=== PATIENT | female | born 1940 | race Caucasian/White ===

== ENCOUNTER 2016-03-22 07:39 | Day surgery (SDC) | payer MEDICARE ==
[~2016-03-22] VITALS: Ht 162.6 cm; Wt 57.0 kg
[~2016-03-22 07:39] MED LIST: ACET500T3 PO; BENA25TA3 PO; CYCL1TAB29 PO; DEXA4TAB PO; LORA-373 PO; NAPR500 PO; PERC5TAB12 PO; PRIL20CA9 PO; REGL10TA5 PO; ZOFR8TAB PO
[2016-03-22 07:55] VITALS: BP 141/83; PULSE 105; RESP 20; TEMP 97.6; O2SAT 97
[2016-03-22] MEDS ORDERED: LEVOFLOXACIN 500 MG PREMIX 100 ML - nephrostomy tube insertion or exchange IV SCH (08:00)
[2016-03-22] MEDS ORDERED: SODIUM CHLORIDE 0.9% 1000 ML IV SCH (08:00)
[2016-03-22] MEDS ORDERED: ONDANSETRON HCL 4 MG/2 ML VIAL ONE (08:36)
[2016-03-22] MEDS ORDERED: ONDANSETRON HCL 4 MG/2 ML VIAL IVS ONE (09:00)
[2016-03-22] MEDS ORDERED: Infusaport/Implanted VAD PRN NS Lock Flush IVF (10:00)
[2016-03-22] MEDS ORDERED: fentaNYL CITRATE 250 MCG/5 ML AMP ONE (10:39)
[2016-03-22] MEDS ORDERED: MIDAZOLAM HCL 5 MG/5 ML VIAL ONE (10:39)
--- NOTE | 2016-03-22 11:11 | PD.RAD ---
Post Procedure Progress Note Pre Procedure Diagnosis: (1) Obstructive uropathy Post Procedure Diagnosis: (1) Obstructive uropathy Procedure Date: Mar 22, 2016 Supervising Radiologist: Kenrick Phillips Proceduralist/Assist: RT Clyde(R) Anesthesia: Conscious Sedation Plan of Activity Patient to Unit: ROPU Patient Condition: Good See PACS Report for procedural detail/treatment Drainage Procedure Procedure 1 Side: Right Procedure Type: Nephrostomy Procedure: Replacement Fluid Description: Kenrick Garcia MD Mar 22, 2016 11:11
[2016-03-22 11:15] VITALS: BP 113/68; PULSE 103; RESP 16; TEMP 98.1; O2SAT 95
[2016-03-22] MEDS ORDERED: IOHEXOL 350 MG/ML 50 ML BTL (for RAD DIAG) ONE (11:15)
[2016-03-22 11:58] VITALS: BP 117/74; PULSE 92; RESP 18; O2SAT 94
[2016-03-22 12:30] VITALS: BP 111/75; PULSE 90; RESP 18; O2SAT 95
[2016-03-22 13:00] VITALS: BP 135/79; PULSE 73; RESP 18; O2SAT 95
--- NOTE | 2016-03-22 16:04 | RADRPT ---
EXAM DATE/TIME: 03/22/2016 11:25 [facility] COMPARISON: CHANGE OF NEPHROSTOMY CATH, RT, February 08, 2016, 8:42. INDICATIONS : Patient with right ureteral obstruction in need of nephrostomy tube exchange. MEDICAL HISTORY : Hx of kidney stones Lupus fibromyalga Hx of Breast cancer Ovarian cancer 2017 Hyperlipidemia SURGICAL HISTORY : Bladder sling 2009 Lt breast lumpectomy 07/2007 Rt breast lumpectomy 07/2004 Lithotripsy 1997 Hysterectomy 2009 Pelvic mass excision Rt nephrostomy tube placement ENCOUNTER: Subsequent ACUITY: 1 day PAIN SCORE: 0/10 FLUORO TIME: 1.0 minutes SEDATION TIME: 20 minutes CONTRAST: 20 cc Omnipaque (iohexol) 350 MEDICATION(S): 1.) 1 mg midazolam (Versed) IV 2.) 50 mcg fentanyl (Sublimaze) IV DEVICE(S): 1.) 8 Tamazight nephrostomy catheter PROCEDURE : 1. Antegrade pyelogram. 2. Nephrostomy tube exchange. 3. Conscious sedation with continuous EKG and oximetry monitoring. The risks, benefits and alternatives to the procedure were explained and verbal and written consent w as obtained. The site was prepped in sterile fashion. Full sterile technique was used, including ca p, mask, sterile gloves and gown and a large sterile sheet. Hand hygiene and 2% chlorhexidine and/or betadine/alcohol prep was utilized per protocol for cutaneous antisepsis. The skin and subcutaneous tissues were infiltrated with local anesthetic solution. With fluoroscopic guidance antegrade pyelo gram was performed. This demonstrates complete obstruction of the ureter at the level the pelvic brim. Over a guidewire the prescribed nephrostomy tube was placed. Injection of positive contrast demonstra alisha good position of the catheter within the collecting system. Conscious sedation was performed with the prescribed dosages and duration as above. The patient tole rated the procedure well and there were no complications. EKG and oximetry remained stable throughou t the procedure. The patient was sent to post anesthesia recovery in stable condition. CONCLUSION: Uncomplicated nephrostomy tube exchange as above. Kenrick Phillips MD on March 22, 2016 at 16:01 Board Certified Radiologist. This report was verified electronically.
[2016-06-21] MEDS ORDERED: MAGN250T2 PO (10:59)
[2016-06-21] MEDS ORDERED: VITACAP7 PO (10:59)
[2016-07-20] MEDS ORDERED: DIPH25CA PO (13:17)
== END 2016-03-22 13:45 | disposition home or self-care (01) ==
LOC: HROP 07:39 → HRIP 07:40 → HROP 13:45
PROVIDERS: ATTEND Urology
DX: N13.5 Crossing vessel and stricture of ureter without hydronephrosis (principal); M32.9 Systemic lupus erythematosus, unspecified; E78.5 Hyperlipidemia, unspecified; C56.9 Malignant neoplasm of unspecified ovary; Z87.442 Personal history of urinary calculi; Z85.3 Personal history of malignant neoplasm of breast
CPT/HCPCS: 50435; 99152; 99153; C1729; C1769; J1956; J2250; J2405; J3010; J7030; Q9967

== ENCOUNTER → 2016-06-21 | Outpatient (CLI) | payer MEDICARE, OTHER ==
[~2016-06-21] MED LIST changes: -ACET500T3 PO; -DEXA4TAB PO; +DIPH25CA PO; +MAGN250T2 PO; +PRIL20TA2; +TYLE325T PO; +VITACAP7 PO
[2016-06-21 11:34] LABS: AUTOMATED NEUTROPHIL # 2.8 TH/MM3 (1.8-7.7); BASOPHIL % 0.5 % (0.0-2.0); EOSINOPHIL # 0.7 TH/MM3 (0-0.4); EOSINOPHIL % 12.1 % (0.0-4.0); HEMATOCRIT 34.2 % (35.0-46.0); HEMO FLAGS DIFF FINAL; LYMPH % 27.7 % (9.0-44.0); LYMPHOCYTE # 1.5 TH/MM3 (1.0-4.8); MEAN CELL VOLUME 96.3 FL (80.0-100.0); MEAN CORPUSCULAR HEMOGLOBIN 32.6 PG (27.0-34.0); MEAN CORPUSCULAR HGB CONC 33.9 % (32.0-36.0); MONO % 8.8 % (0.0-8.0); NEUT % 50.9 % (16.0-70.0); PLATELET COUNT 178 TH/MM3 (150-450); RED BLOOD COUNT 3.55 MIL/MM3 (4.00-5.30); RED CELL DISTRIBUTION WIDTH 15.3 % (11.6-17.2); WHITE BLOOD COUNT 5.6 TH/MM3 (4.0-11.0)
[2016-06-21 11:56] LABS: APTT (PATIENT) 26.2 SEC (24.3-30.1); PROTHROMBIN TIME - PATIENT 10.7 SEC (9.8-11.6)
[2016-06-21 12:00] LABS: ALKALINE PHOSPHATASE 98 U/L (45-117); ALT (GPT) 24 U/L (10-53); AST (GOT) 23 U/L (15-37); BICARBONATE 26.8 MEQ/L (21.0-32.0); BLOOD UREA NITROGEN 30 MG/DL (7-18); CHLORIDE 103 MEQ/L (98-107); GLOMERULAR FILTRATION RATE 42 ML/MIN (>89); GLUCOSE,FASTING 86 MG/DL (74-99); POTASSIUM 4.2 MEQ/L (3.5-5.1); SODIUM (NA) 141 MEQ/L (136-145); TOTAL BILIRUBIN ADULT 0.6 MG/DL (0.2-1.0)
[2016-06-21 12:01] LABS: ANION GAP 11 MEQ/L (5-15)
--- NOTE | 2016-06-22 10:01 | EKG ---
Date Performed: 06/21/2016 Time Performed: 10:47:03 PTAGE: 75 years EKG: Sinus rhythm NORMAL ECG PREVIOUS TRACING : 10/29/2015 12.31 DOCTOR: Mckinley Macias Interpretating Date/Time 06/22/2016 09:59:57
== END ==
LOC: CPRE 10:26
PROVIDERS: ATTEND Urology
DX: Z01.810 Encounter for preprocedural cardiovascular examination (principal); Z01.812 Encounter for preprocedural laboratory examination; N13.5 Crossing vessel and stricture of ureter without hydronephrosis
CPT/HCPCS: 36415; 80053; 85025; 85610; 85730; 93005

== ENCOUNTER → 2016-06-28 | Day surgery (SDC) | payer MEDICARE, OTHER ==
[~2016-06-28] VITALS: Ht 161.3 cm; Wt 62.0 kg
[~2016-06-28] MED LIST changes: +ACETAMINOPHEN 1000 MG/100 ML VIAL IV ONE; +APREPITANT 40 MG CAP ONE; +CHLORHEXIDINE GLUCONATE 2 % 1 PACK (2 CLOTHS) TOPICAL PRN; +DEXAMETHASONE SOD PHOS 4 MG/ML VIAL ONE; +DICLOFENAC SODIUM 37.5 MG/ML VIAL IV PUSH ONE; +DO NOT ADM ANY ANTICOAGULANT DRUGS PRN; +FAMOTIDINE 20 MG/2 ML VIAL ONE; +INSULIN HUMAN REGULAR 1,000 UNITS/10 ML VIAL SQ PRN; +IOHEXOL 350 MG/ML 50 ML BTL (for RAD DIAG) OTHER ONE; +LACTATED RINGER'S 1000 ML INJ 1,000 ML IV ONE; +LACTATED RINGER'S 1000 ML IV PRN; +LEVOFLOXACIN/DEXTROSE 500 MG/100 ML IVPB IV ONE; +METOPROLOL TARTRATE 25 MG TAB PO PRN; +MIDAZOLAM HCL 2 MG/2 ML VIAL ONE; +NEOSTIGMINE 3 MG/3 ML SYR IV ONE; +NORMOSOL R INJ 1,000 ML IV ONE; +ONDANSETRON HCL 4 MG/2 ML VIAL IV PUSH ONE; +ONDANSETRON HCL 4 MG/2 ML VIAL IV PUSH PRN; -PERC5TAB12 PO; +PHENYLEPH/NS 1000 MCG/10 ML SYR IV ONE; +POVIDONE IODINE 5% (ANTISEPSIS KIT) 4 APPLICATIONS EACH NARE PRN; +PROPOFOL 200 MG/20 ML AMP IV ONE; +SODIUM CHLORID 0.9% 500 ML IV PRN; +fentaNYL CITRATE 250 MCG/5 ML AMP ONE
[2016-06-28 07:26] VITALS: BP 117/62; PULSE 96; RESP 18; TEMP 97.8; O2SAT 99
--- NOTE | 2016-06-28 10:28 | PD.OP ---
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 Postoperatively the patient was noted to have marked hydronephrosis. Attempts were made to pass a ureteral stent both antegrade and retrograde fashion without success and the patient has been managed with a right nephrostomy tube. Patient presents today for further evaluation to include a retrograde pyelogram and nephrostogram to determine the gap between the ureteral segments and possibly proceed with a ureteral ureteral anastomosis using a laparoscopic approach. Operative procedures in detail: Patient was brought to the operating room suite and placed supine on the OR table. She was then placed under general anesthesia. She was then repositioned in the dorsal lithotomy position and prepped and draped in normal sterile fashion. After the appropriate timeout was undertaken, I proceeded with cystoscopic evaluation. Both right and left ureteral orifices were in correct anatomic position. There was clear reflux noted on the left and no reflux noted on the right side. A sensor 0.35 wire was advanced up the patient's right ureter several centimeters and then a 6 Thai open-ended catheter was advanced over the wire approximately 2 cm from the ureteral orifice in a cephalad direction. A retrograde pyelogram study was performed which highlighted only the very distal aspect of the ureter with abrupt demarcation approximately 6 cm from the ureteral orifice. A nephrostogram study was then performed to highlight the upper collecting system and the gap between the highlighted ureteral segments with significant and greater than 10 cm. Due to the large ureteral defect I felt it would not be possible to do a ureteral ureteral anastomosis. The patient was subsequently transferred to the PACU in satisfactory condition having tolerated the procedures well. Jose L Ambrocio MD June 28, 2016 10:28
--- NOTE | 2016-06-28 10:44 | RADRPT ---
EXAM DATE/TIME: 06/28/2016 09:57 [facility] COMPARISON: No previous studies available for comparison. INDICATIONS : Obstruction. .54 minutes 3 CONTRAST: Instilled by Ordering Physician MEDICAL HISTORY : Carcinoma, breast. Carcinoma, ovarian SURGICAL HISTORY : Nephrostomy tube ENCOUNTER: Initial ACUITY: 1 day PAIN SCORE: Non-responsive. LOCATION: Right quadrant FINDINGS: 3 images from intraoperative retrograde ureterogram. Contrast terminates at the level of the right di stal ureter. Catheter is seen within the distal ureter. CONCLUSION: Contrast seen within distal ureter. Contrast column terminates in the distal ureter s everal centimeters below the pelvic brim. Ncio Roblero MD on June 28, 2016 at 10:39 Board Certified Radiologist. This report was verified electronically.
[2016-06-28 12:46] VITALS: BP 128/74; PULSE 88; RESP 18; TEMP 98; O2SAT 99
== END | disposition home or self-care (01) ==
LOC: HSDC 06:33 → EDSTATUS 08:30
PROVIDERS: ATTEND Urology
DX: N13.5 Crossing vessel and stricture of ureter without hydronephrosis (principal); C56.1 Malignant neoplasm of right ovary; Z85.3 Personal history of malignant neoplasm of breast
CPT/HCPCS: 00910; 36415; 52005; 74420; 76000; 86850; 86900; 86901; 86920; C1769; J0131; J1100; J1956; J2250; J2370; J2405; J2710; J3010; J7120; J8501; Q9967; J1130

== ENCOUNTER 2016-07-06 07:34 | Day surgery (SDC) | payer MEDICARE ==
[~2016-07-06] VITALS: Ht 161.3 cm; Wt 59.5 kg
[~2016-07-06 07:34] MED LIST changes: -ACETAMINOPHEN 1000 MG/100 ML VIAL IV ONE; -APREPITANT 40 MG CAP ONE; -CHLORHEXIDINE GLUCONATE 2 % 1 PACK (2 CLOTHS) TOPICAL PRN; -DEXAMETHASONE SOD PHOS 4 MG/ML VIAL ONE; -DICLOFENAC SODIUM 37.5 MG/ML VIAL IV PUSH ONE; -DIPH25CA PO; -DO NOT ADM ANY ANTICOAGULANT DRUGS PRN; -FAMOTIDINE 20 MG/2 ML VIAL ONE; -INSULIN HUMAN REGULAR 1,000 UNITS/10 ML VIAL SQ PRN; -IOHEXOL 350 MG/ML 50 ML BTL (for RAD DIAG) OTHER ONE; -LACTATED RINGER'S 1000 ML INJ 1,000 ML IV ONE; -LACTATED RINGER'S 1000 ML IV PRN; -LEVOFLOXACIN/DEXTROSE 500 MG/100 ML IVPB IV ONE; -METOPROLOL TARTRATE 25 MG TAB PO PRN; -MIDAZOLAM HCL 2 MG/2 ML VIAL ONE; -NEOSTIGMINE 3 MG/3 ML SYR IV ONE; -NORMOSOL R INJ 1,000 ML IV ONE; -ONDANSETRON HCL 4 MG/2 ML VIAL IV PUSH ONE; -ONDANSETRON HCL 4 MG/2 ML VIAL IV PUSH PRN; -PHENYLEPH/NS 1000 MCG/10 ML SYR IV ONE; -POVIDONE IODINE 5% (ANTISEPSIS KIT) 4 APPLICATIONS EACH NARE PRN; -PRIL20TA2; -PROPOFOL 200 MG/20 ML AMP IV ONE; -REGL10TA5 PO; -SODIUM CHLORID 0.9% 500 ML IV PRN; -TYLE325T PO; -ZOFR8TAB PO; -fentaNYL CITRATE 250 MCG/5 ML AMP ONE
[2016-07-06 08:14] VITALS: BP 150/86; PULSE 92; RESP 16; TEMP 97.7; O2SAT 99
[2016-07-06] MEDS ORDERED: TYLE325T PO (08:23)
[2016-07-06] MEDS ORDERED: LEVOFLOXACIN 500 MG PREMIX 100 ML - nephrostomy tube insertion or exchange IV SCH (08:30)
[2016-07-06] MEDS ORDERED: SODIUM CHLORIDE 0.9% 1000 ML IV SCH (08:30)
[2016-07-06] MEDS ORDERED: fentaNYL CITRATE 250 MCG/5 ML AMP ONE (09:30)
[2016-07-06] MEDS ORDERED: ONDANSETRON HCL 4 MG/2 ML VIAL ONE (09:30)
[2016-07-06] MEDS ORDERED: MIDAZOLAM HCL 5 MG/5 ML VIAL ONE (09:30)
[2016-07-06] MEDS ORDERED: IOHEXOL 350 MG/ML 50 ML BTL (for RAD DIAG) ONE (10:25)
--- NOTE | 2016-07-06 10:28 | PD.RAD ---
Post Procedure Progress Note Pre Procedure Diagnosis: (1) Ureteral obstruction, right Post Procedure Diagnosis: (1) Ureteral obstruction, right Procedure Date: July 06, 2016 Supervising Radiologist: Calin Silva Anesthesia: Analgesia Plan of Activity Patient to Unit: ROPU Patient Condition: Good Additional Comments: right nephrostomy tube changed without difficulty full report to follow See PACS Report for procedural detail/treatment Calin Silva MD July 06, 2016 10:28
[2016-07-06 10:44] VITALS: BP 123/74; PULSE 85; RESP 19; TEMP 97.7; O2SAT 94
--- NOTE | 2016-07-06 11:05 | RADRPT ---
EXAM DATE/TIME: 07/06/2016 09:44 [facility] COMPARISON: CHANGE OF NEPHROSTOMY CATH, RT, March 22, 2016, 11:25. INDICATIONS : Patient with ureteral obstruction in need of nephrostomy tube exchange. MEDICAL HISTORY : Hx of kidney stones Lupus fibromyalga Hx of Breast cancer Ovarian cancer 2017 Hyperlipidemia SURGICAL HISTORY : Bladder sling 2009 Lt breast lumpectomy 07/2007 Rt breast lumpectomy 07/2004 Lithotripsy 1998 Hysterectomy 2009 Pelvic mass excision Rt nephrostomy tube placement ENCOUNTER: Subsequent ACUITY: 1 day PAIN SCORE: 5/10 LOCATION: headache FLUORO TIME: 1.0 minutes IMAGE SERIES: 2 SEDATION TIME: 10 minutes CONTRAST: 10 cc Omnipaque (iohexol) 350 MEDICATION(S): 1.) 1 mg midazolam (Versed) IV 2.) 100 mcg fentanyl (Sublimaze) IV DEVICE(S): 1.) 8 Sami nephrostomy catheter PROCEDURE : 1. Antegrade pyelogram. 2. Nephrostomy tube exchange. 3. Conscious sedation with continuous EKG and oximetry monitoring. The risks, benefits and alternatives to the procedure were explained and verbal and written consent w as obtained. The site was prepped in sterile fashion. Full sterile technique was used, including ca p, mask, sterile gloves and gown and a large sterile sheet. Hand hygiene and 2% chlorhexidine and/or betadine/alcohol prep was utilized per protocol for cutaneous antisepsis. The skin and subcutaneous tissues were infiltrated with local anesthetic solution. With fluoroscopic guidance antegrade pyelo gram was performed. This confirmed obstruction of the right ureter. Over a guidewire the 8 Sami nephrostomy tube was placed. Injection of positive contrast demonstrate s good position of the catheter within the collecting system. Conscious sedation was performed with the prescribed dosages and duration as above in the presence of an independent trained radiology nurse to assist in the monitoring of the patient. EKG and oximetry remained stable throughout the procedure. The patient tolerated the procedure well and there were n o complications. The patient was sent to post anesthesia recovery in stable condition. CONCLUSION: Uncomplicated nephrostomy tube exchange as above. Calin Silva MD on July 06, 2016 at 11:04 Board Certified Radiologist. This report was verified electronically.
[2016-07-06 11:14] VITALS: BP 116/73; PULSE 79; RESP 17; O2SAT 96
[2016-07-06 11:44] VITALS: BP 122/76; PULSE 74; RESP 17; O2SAT 97
[2016-07-06 13:00] VITALS: BP 120/74; PULSE 78; RESP 19; O2SAT 97
[2016-07-20] MEDS ORDERED: DIPH25CA PO (13:17)
== END 2016-07-06 13:02 | disposition home or self-care (01) ==
LOC: HROP 07:34 → HRIP 07:35 → HROP 13:02
PROVIDERS: ATTEND Urology
DX: N13.5 Crossing vessel and stricture of ureter without hydronephrosis (principal); E78.5 Hyperlipidemia, unspecified; M32.9 Systemic lupus erythematosus, unspecified; Z87.442 Personal history of urinary calculi; Z85.3 Personal history of malignant neoplasm of breast; Z85.43 Personal history of malignant neoplasm of ovary; Z88.0 Allergy status to penicillin; Z88.1 Allergy status to other antibiotic agents; Z88.5 Allergy status to narcotic agent
CPT/HCPCS: 50435; 99152; C1729; C1769; J1956; J2250; J2405; J3010; J7030; Q9967

== ENCOUNTER 2016-08-21 09:51 | Emergency (ER) | payer MEDICARE ==
[2016-08-21] VITALS (8 sets, daily range): BP systolic 103–117; BP diastolic 56–59; PULSE 6–109; RESP 16–20; TEMP 97.7; O2SAT 96–100
[~2016-08-21] VITALS: Ht 160 cm; Wt 60.0 kg
[~2016-08-21 09:51] MED LIST changes: -BENA25TA3 PO; +DIPH25CA PO; -MAGN250T2 PO; -PRIL20CA9 PO; +TYLE325T PO
[2016-08-21] MEDS ORDERED: PRIL20TA2 (10:17)
--- NOTE | 2016-08-21 10:34 | PD ---
HPI Chief Complaint: Medicaid Nurse Problem Time Seen by Provider: 10:03 Travel History International Travel<30 days: No Contact w/Intl Traveler<30days: No Traveled to known affect area: No History of Present Illness HPI This patient has a right sided nephrostomy tube that when she woke up this morning noticed it was completely pulled out. She is not having any pain and had no acute injury. She has history of ovarian cancer and nonfunctional right ureter due to compression. She has been referred to [facility] which is coming up in 5 days to consider ureteral replantation/reconstruction options. No alleviating factors. Symptoms severity is mild. Duration 3 hours PFSH Past Medical History Blood Disorders: No Cancer: Yes (RIGHT BREAST 2004, LEFT BREAST 2008, RIGHT OVARIAN) Cardiovascular Problems: No Chemotherapy: Yes (APRIL 2016) Diabetes: No Diminished Hearing: No Endocrine: No Fibromyalgia: Yes Gastrointestinal Disorders: Yes (REFLUX) Glaucoma: No Genitourinary: Yes (RIGHT URETER BLOCKAGE) Hepatitis: No Hiatal Hernia: No Hypertension: No Immune Disorder: No Kidney Stones: Yes Musculoskeletal: Yes (FIBROMYALGIA) Neurologic: Yes (PERIPHERAL NEUROPATHY, RLS) Psychiatric: No Reproductive: No Respiratory: Yes (POST NASAL DRIP) Radiation Therapy: Yes Thyroid Disease: No Tetanus Vaccination: > 5 Years Influenza Vaccination: No ?: Not Past Surgical History Abdominal Surgery: No AICD: No Body Medical Devices: RIGHT NEPHROSTOMY TUBE, RIGHT CHEST PORT Cardiac Surgery: No Ear Surgery: No Endocrine Surgery: No Eye Surgery: Yes (BILATERAL CATARACTS) Genitourinary Surgery: Yes (RIGHT NEPHROSTOMY TUBE PLACEMENT) Gynecologic Surgery: Yes (BILATERAL BREAST BIOSPY, ISAIAS LUMPECTOMY, HYSTERECTOMY ) Joint Replacement: No Oral Surgery: No Pacemaker: No Thoracic Surgery: No Other Surgery: Yes (LUMPECTOMY) Social History Alcohol Use: No Tobacco Use: No Substance Use: No Allergies-Medications (Allergen,Severity, Reaction): Coded Allergies: Azithromycin (Verified Allergy, Severe, Hives, 08/21/16) Dust (Verified Allergy, Severe, HEADACHE, RUNNY NOSE, 08/21/16) Molds and Smuts (Verified Allergy, Severe, HEADACHE AND RUNNY NOSE, 08/21/16 ) Ultram (Verified Allergy, Severe, VOMITING, 08/21/16) Amoxicillin (Verified Adverse Reaction, Severe, Diarrhea, 08/21/16) Uncoded Allergies: POLLEN (Allergy, Severe, HEADACHE, RUNNY NOSE, 06/28/16) Reported Meds & Prescriptions Reported Meds & Active Scripts Active Reported Prilosec (Omeprazole Magnesium) 20 Mg Tab DAILY Diphenhydramine (Diphenhydramine HCl) 25 Mg Cap 25 Mg PO HS PRN Tylenol (Acetaminophen) 325 Mg Tab 650 Mg PO Q6H PRN B Complex (B-Complex Vitamins) 1 Cap 1 Cap PO DAILY Naprosyn (Naproxen) 500 Mg Tab 500 Mg PO DAILY PRN Lorazepam 0.5 Mg Tab 0.25 Mg PO HS PRN Flexeril (Cyclobenzaprine HCl) 10 Mg Tab 10 Mg PO DAILY PRN Review of Systems General / Constitutional: No: Fever Eyes: No: Visual changes HENT: No: Headaches Cardiovascular: No: Chest Pain or Discomfort Respiratory: No: Shortness of Breath Gastrointestinal: No: Abdominal Pain Genitourinary: No: Dysuria Musculoskeletal: No: Pain Skin: No Rash Neurologic: No: Weakness Psychiatric: No: Depression Endocrine: No: Polydipsia Hematologic/Lymphatic: No: Easy Bruising Physical Exam Narrative GENERAL: Well-nourished, well-developed patient in no apparent distress. SKIN: Focused skin assessment reveals no rash and nodules. Skin is Warm and dry. HEAD: Atraumatic. Normocephalic. EYES: Pupils equal and round. No scleral icterus. No injection or drainage. ENT: No nasal bleeding or discharge. Mucous membranes pink and moist. NECK: Trachea midline. No JVD. CARDIOVASCULAR: Regular rate and rhythm. No murmur appreciated. RESPIRATORY: No accessory muscle use. Clear to auscultation. Breath sounds equal bilaterally. GASTROINTESTINAL: Abdomen soft, non-tender, nondistended. Hepatic and splenic margins not palpable. MUSCULOSKELETAL: No obvious deformities. No clubbing. No cyanosis. No edema. Examination the right flank reveals there is a hole where the nephrostomy tube was. No sign of infection. No drainage. NEUROLOGICAL: Awake and alert. No obvious cranial nerve deficits. Motor grossly within normal limits. Normal speech. PSYCHIATRIC: Appropriate mood and affect; insight and judgment normal. Data Data Last Documented VS Vital Signs Date Time Temp Pulse Resp B/P Pulse Ox O2 Delivery O2 Flow Rate FiO2 08/21/16 09:53 97.7 109 20 103/59 98 Room Air Orders Iv Access Insert/Monitor (08/21/16 10:34) Complete Blood Count With Diff (08/21/16 10:34) Basic Metabolic Panel (Bmp) (08/21/16 10:34) Prothrombin Time / Inr (Pt) (08/21/16 10:34) Act Partial Throm Time (Ptt) (08/21/16 10:34) Labs Laboratory Tests Test 08/21/16 11:00 White Blood Count 6.1 TH/MM3 Red Blood Count 3.47 MIL/MM3 Hemoglobin 11.0 GM/DL Hematocrit 32.1 % Mean Corpuscular Volume 92.7 FL Mean Corpuscular Hemoglobin 31.7 PG Mean Corpuscular Hemoglobin 34.2 % Concent Red Cell Distribution Width 12.8 % Platelet Count 246 TH/MM3 Mean Platelet Volume 7.3 FL Neutrophils (%) (Auto) 57.5 % Lymphocytes (%) (Auto) 29.2 % Monocytes (%) (Auto) 10.2 % Eosinophils (%) (Auto) 2.6 % Basophils (%) (Auto) 0.5 % Neutrophils # (Auto) 3.5 TH/MM3 Lymphocytes # (Auto) 1.8 TH/MM3 Monocytes # (Auto) 0.6 TH/MM3 Eosinophils # (Auto) 0.2 TH/MM3 Basophils # (Auto) 0.0 TH/MM3 CBC Comment DIFF FINAL Differential Comment Prothrombin Time 11.1 SEC Prothromb Time International 1.0 RATIO Ratio Activated Partial 28.4 SEC Thromboplast Time Sodium Level 141 MEQ/L Potassium Level 4.0 MEQ/L Chloride Level 106 MEQ/L Carbon Dioxide Level 28.6 MEQ/L Anion Gap 6 MEQ/L Blood Urea Nitrogen 28 MG/DL Creatinine 1.10 MG/DL Estimat Glomerular Filtration 49 ML/MIN Rate Random Glucose 86 MG/DL Calcium Level 9.5 MG/DL [facility] Medical Decision Making Medical Screen Exam Complete: Yes Emergency Medical Condition: Yes Medical Record Reviewed: Yes Differential Diagnosis Displaced nephrostomy tube, nonfunctional tube, renal failure Narrative Course I have reviewed the patient's electronic medical record. Reviewed her most recent evaluation from urologist Dr. Ambrocio I placed a call to radiology specials to see if this could be replaced. IV placed CBC is normal Metabolic profile reasonably normal Coagulation studies are normal I spoke with radiologist Dr. Ajay Weir who is going to replace her nephrostomy tube. After that she should be stable for discharge home Diagnosis Primary Impression: Nephrostomy tube displaced Disposition: 01 DISCHARGE HOME Condition: Stable Nicholas Avitia MD Aug 21, 2016 10:34
[2016-08-21 11:08] LABS: AUTOMATED NEUTROPHIL # 3.5 TH/MM3 (1.8-7.7); BASOPHIL % 0.5 % (0.0-2.0); EOSINOPHIL # 0.2 TH/MM3 (0-0.4); EOSINOPHIL % 2.6 % (0.0-4.0); HEMATOCRIT 32.1 % (35.0-46.0); HEMO FLAGS DIFF FINAL; LYMPH % 29.2 % (9.0-44.0); LYMPHOCYTE # 1.8 TH/MM3 (1.0-4.8); MEAN CELL VOLUME 92.7 FL (80.0-100.0); MEAN CORPUSCULAR HEMOGLOBIN 31.7 PG (27.0-34.0); MEAN CORPUSCULAR HGB CONC 34.2 % (32.0-36.0); MONO % 10.2 % (0.0-8.0); NEUT % 57.5 % (16.0-70.0); PLATELET COUNT 246 TH/MM3 (150-450); RED BLOOD COUNT 3.47 MIL/MM3 (4.00-5.30); RED CELL DISTRIBUTION WIDTH 12.8 % (11.6-17.2); WHITE BLOOD COUNT 6.1 TH/MM3 (4.0-11.0)
[2016-08-21 11:17] LABS: APTT (PATIENT) 28.4 SEC (24.3-30.1); PROTHROMBIN TIME - PATIENT 11.1 SEC (9.8-11.6)
[2016-08-21 11:24] LABS: BICARBONATE 28.6 MEQ/L (21.0-32.0)
[2016-08-21] MEDS ORDERED: LEVOFLOXACIN 500 MG PREMIX INJ 100 ML IV ONE (13:46)
[2016-08-21] MEDS ORDERED: MIDAZOLAM HCL 2 MG/2 ML VIAL ONE (13:47)
[2016-08-21] MEDS ORDERED: fentaNYL CITRATE 250 MCG/5 ML AMP ONE (13:47)
[2016-08-21] MEDS ORDERED: ONDANSETRON HCL 4 MG/2 ML VIAL ONE (14:08)
--- NOTE | 2016-08-21 14:34 | PD.RAD ---
Post Procedure Progress Note Pre Procedure Diagnosis: (1) Ureteral obstruction, right (2) Pelvic mass in female Post Procedure Diagnosis: (1) Ureteral obstruction, right (2) Pelvic mass in female Procedure Date: Aug 21, 2016 Supervising Radiologist: Ajay Weir Proceduralist/Assist: RT Yana(R)() Anesthesia: Conscious Sedation Plan of Activity Patient to Unit: Nursing Unit Patient Condition: Good See PACS Report for procedural detail/treatment Drainage Procedure Procedure 1 Imaging Guidance: Fluoroscopy Side: Right Procedure Type: Nephrostomy Procedure: Replacement Guatemalan: 8 Drainage: [place] drainage Fluid Description: Clear, Yellow Additional Detail: 8 serbian flexima nephrostomy Ajay Weir MD Aug 21, 2016 14:34
[2016-08-21] MEDS ORDERED: IOHEXOL 350 MG/ML 50 ML BTL (for RAD DIAG) ONE (14:52)
--- NOTE | 2016-08-21 23:02 | RADRPT ---
EXAM DATE/TIME: 08/21/2016 14:43 [facility] COMPARISON: No previous studies available for comparison. INDICATIONS : Patient with ureteral obstruction secondary to gynecological malignancy. Tube fell out. MEDICAL HISTORY : 1.kidney stones 2. Lupus 3. fibromyalga 4. Hx of breast ca 5. ovarian ca 6. Hyperlipidemia SURGICAL HISTORY : 1. Bladder sling 2009 2. Lt breast lumpectomy 3. Rt breast lumpectomy 4. Lithotripsy 5. Hysterectomy 6. pelvic mass excision 7. rt neph tube placed. ENCOUNTER: Subsequent ACUITY: 1 day PAIN SCORE: 0/10 FLUORO TIME: 2.2 minutes IMAGE SERIES: 1 SEDATION TIME: 30 minutes CONTRAST: 10 cc Omnipaque (iohexol) 350 MEDICATION(S): 1.) 1.5 mg midazolam (Versed) IV 2.) 150 mcg fentanyl (Sublimaze) IV 3.) 4 mg ondansetron (Zofran) IV Prophylactic antibiotics were administered with appropriate pre-procedure timing. DEVICE(S): 1.) 8 Finnish nephrostomy catheter PROCEDURE : 1. Ultrasound-guided puncture of the kidney. 2. Antegrade percutaneous pyelogram. 3. Percutaneous nephrostomy placement. 4. Conscious sedation with continuous EKG and oximetry monitoring. The risks, benefits and alternatives to the procedure were explained and verbal and written consent w as obtained. The site was prepped in sterile fashion. Full sterile technique was used, including ca p, mask, sterile gloves and gown and a large sterile sheet. Hand hygiene and 2% chlorhexidine and/or betadine/alcohol prep was utilized per protocol for cutaneous antisepsis. The skin and subcutaneous tissues were infiltrated with local anesthetic solution. The previous nephrostomy site was cannulated with a 5 Finnish vessel dilator. Once the previous tract had been accessed, small-volume contrast injection was performed opacifying a thin residual tract int o the right kidney collecting system. An angled Glidewire was manipulated with little difficulty thro ugh the tract under direct fluoroscopic guidance. A dilator followed without difficulty. An 8 Finnish Flexima nephrostomy tube was then introduced and formed up in the right renal pelvis. The tube was co nnected to gravity drainage. Conscious sedation was performed with the prescribed dosages and duration as above in the presence of an independent trained radiology nurse to assist in the monitoring of the patient. EKG and oximetry remained stable throughout the procedure. The patient tolerated the procedure well and there were n o complications. The patient was sent to post anesthesia recovery in stable condition. CONCLUSION: Uncomplicated nephrostomy tube placement as above. Ajay Weir MD on August 21, 2016 at 22:57 Board Certified Radiologist. This report was verified electronically.
== END 2016-08-21 17:46 | disposition home or self-care (01) ==
LOC: NEPC 09:51
DX: T83.022A Displacement of nephrostomy catheter, initial encounter (principal); M79.7 Fibromyalgia; G62.9 Polyneuropathy, unspecified; Y73.2 Prosthetic and other implants, materials and accessory gastroenterology and urology devices associated with adverse incidents; Z85.43 Personal history of malignant neoplasm of ovary; Z85.3 Personal history of malignant neoplasm of breast; Z79.899 Other long term (current) drug therapy
CPT/HCPCS: 50432; 80048; 85025; 85610; 85730; 96374; 96375; 99152; 99153; 99284; C1729; C1769; J1642; J1956; J2250; J2405; J3010; Q9967